=== PATIENT | female | born 1960 | race Caucasian/White ===

== ENCOUNTER 2019-01-17 13:25 | Inpatient (IN) | payer BC ==
[2019-01-17] MEDS ORDERED: ISOVUE-370 76%-LOCM 1 ML ONE (13:35)
[2019-01-17 14:01] VITALS: BMI 32.8
[2019-01-17] MEDS ORDERED: Fentanyl 100 MCG/2 ML VIAL SLOW IVP PRN (14:29)
[2019-01-17] MEDS: Dextrose 5 % And 0.9 % NaCl 1,000 ML IV SCH ×2 (15:06→23:49)
[2019-01-17 15:20] LABS: #Basophils 0.1 thou/uL (0.0-0.2); #Eosinphils 0.1 thou/uL (0.0-0.7); #Lymphocytes 2.3 thou/uL (1.20-3.40); #Monocytes 1.6 thou/uL (0.11-0.59); #Neutrophils 11.8 thou/uL (1.40-6.50); %Basophils 0.4 % (0.0-1.0); %Eosinophils 0.9 % (0.0-10.0); %Lymphocytes 14.4 % (21.0-51.0); %Monocytes 10.1 % (0.0-10.0); %Neutrophils 74.3 % (42.0-75.0); Hemoglobin 14.3 g/dL (12.0-16.0); Mean Corpuscular HGB CONC 32.8 g/dL (32.0-36.0); Mean Corpuscular Hemoglobin 27.7 pg (27.0-31.0); Mean Corpuscular Volume 84.6 fL (78.0-98.0); Mean Platelet Volume 7.9 fL (7.4-10.4); Platelet Count 246 thou/uL (130-400); RBC Distribution Width 12.3 % (11.5-14.5); Red Blood Cell (RBC) Count 5.14 mill/uL (4.20-5.40); White Blood Cell (WBC) Count 15.9 thou/uL (4.8-10.8)
[2019-01-17 15:38] LABS: ALT (SGPT) 16 U/L (8-55); AST (SGOT) 12 U/L (5-34); Alkaline Phosphatase 73 U/L (40-150); Anion Gap 14 mmol/L (10-20); BUN (Urea Nitrogen) 13 mg/dL (9.8-20.1); Bilirubin, Total 0.6 mg/dL (0.2-1.2); Calc. Creatinine Clearance 124 mL/min (70-130); Calcium 9.3 mg/dL (7.8-10.44); Carbon Dioxide 24 mmol/L (22-29); Chloride 104 mmol/L (98-107); Estimated GFR-MDRD 71; Globulin 3.2 g/dL (2.4-3.5); Glucose 76 mg/dL (70-105); Lipase 11 U/L (8-78); Potassium 3.7 mmol/L (3.5-5.1); Protein, Total 7.2 g/dL (6.0-8.3); Sodium 138 mmol/L (136-145)
[2019-01-17] MEDS ORDERED: Ondansetron PF 4 MG/2 ML Vial IVP PRN (16:07)
--- NOTE | 2019-01-17 16:40 | HP ---
HISTORY OF PRESENT ILLNESS: Ms. Durham is a pleasant 58-year-old female, who recently moved here from the [facility]. She was seen in our office on 12/04 by referral from emergency room, which she had been seen the day before. She reported at that time 3 to 4 days of diffuse abdominal pain, dull and cramping, and some blood and mucus in her stool. In the emergency room, she had a CAT scan of abdomen and pelvis with contrast, which showed diverticulosis but no diverticulitis, and fatty liver and a small hiatal hernia. Her comp metabolic profile, CBC, and lactic acid were all normal. Physical exam was benign. 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 She says in the past week or two that the symptoms became worse with more cramping and tenesmus in lower abdomen and some more blood and mucus. She has no clots, no melena in her stool. Today, she also complains of some vague dysphagia. She underwent upper and lower endoscopy today and had a small stricture at the GE junction consistent with reflux. This was about 15 mm in size and was dilated with good effect. She also underwent colonoscopy. The colonoscopy is very abnormal with narrowing in the sigmoid colon about 10 cm extending to about 20 cm with extrinsic compression. At first, we could not get through the area. We switched to an upper endoscope. We were able to advance beyond it, but not get into the cecum. We switched back to the regular scope and we were able to get to the cecum, which appeared normal. There was some diverticular disease but no overt diverticulitis in this area and there was quite a bit of extrinsic compression. Biopsies were obtained from the mucosa, which I suspect to be nondiagnostic. After the procedure, she was having a lot of discomfort. She had a benign exam and stable vital signs. She states she felt a little bit worse than she did even before the endoscopy. At that time, we had decided to go ahead and place her in the hospital; 1. To rule out perforation. 2. To re-evaluated her with CAT scan to see if there is any change in last 6 weeks as the colon was markedly abnormal. PAST MEDICAL HISTORY: Reflux, autoimmune disease, diverticulosis, esophageal stricture dilated in the past, irritable bowel, hysterectomy in 2011, abdominoplasty, previous endoscopies in 2011, EGD and colonoscopy with dilation of stricture, no polyps seen at that time. MEDICATIONS AT HOME: 1. Centrum. 2. Fish oil. 3. Vitamin D. ALLERGIES: NONE KNOWN. SOCIAL HISTORY: She drinks alcohol or wine once a week. She does not smoke. She does not use drugs. She is and has a significant other, who is here with today. REVIEW OF SYSTEMS: She has had intermittent problems of dysphagia and globus sensation, hoarseness in the past as noted above. She was dilated today. She has no cough, shortness of breath, weight loss, nausea, vomiting, hematemesis, or melena. ; negative for dysuria, frequency, or urgency. Negative for vaginal bleeding or discharge. PHYSICAL EXAMINATION: VITAL SIGNS: Pulse is 70, blood pressure , weight 232. GENERAL: She is well nourished, well developed. She is a little bit tearful and anxious about the findings for colonoscopy. LUNGS: Clear. HEART: Regular rate and rhythm without clicks or murmurs. ABDOMEN: Soft. She has mild tenderness in the suprapubic region, but no rebound or guarding. EXTREMITIES: No clubbing, cyanosis, or edema. DIAGNOSTIC STUDIES: Previous CAT scan from 12/03 was reviewed with the radiologist. Previous labs were reviewed. ASSESSMENT: 1. Lower abdominal pain and tenesmus with a functional outlet obstruction of the colon. This could be related to chronic diverticular disease or it could be related to extrinsic compression of the colon. 2. Abdominal pain, little bit worse than before her endoscopy. Her exam really has not changed. She definitely has progressive symptoms since she was seen in the emergency room and in our office 6 weeks ago, but I am not sure if she has had much change since her endoscopy, although there is a risk of perforation. PLAN: 1. We will admit her to the hospital for further evaluation including a CAT scan and labs. 2. We will consult the hospitalist to help with medical management issues, and depending on findings of her CAT scan, may involve General Surgery. Job ID: [id number]
[2019-01-17] MEDS: Piperacillin/Tazobactam 4.5 GM in Sodium Chloride 0.9% 100 ML IVPB SCH (17:34)
--- NOTE | 2019-01-17 18:49 | CT ---
ABDOMEN AND PELVIC CT SCAN WITH IV CONTRAST: 01/17/19 HISTORY: Abdominal pain and fever. FINDINGS: Minimal linear chronic stranding in the lung bases. Fatty changes in the liver. Normal appearing gall bladder. Small hiatal hernia. Pancreas, spleen, adrenal glands are unremarkable. No evidence for naga l calculus or acute obstruction. There is some focal diverticulitis in the rectosigmoid region of the colon with fairly marked colonic wall thickening and prominent pericolonic fat stranding and some adjacent fascial thickening and trace free fluid in the pelvis. No CT evidence for acute appendiciti s. No evidence for an abscess. No extraluminal gas. IMPRESSION: Evidence for acute diverticulitis in the rectosigmoid portion of the colon without evidence for absce ss or extraluminal gas. Other findings as above. Findings were discussed with Dr. Melton by phone at 6:18 p.m. Code EDWARD POS: ROBERT
[2019-01-17] MEDS ORDERED: metroNIDAZOLE 500 MG in Premix Bag 1 BAG IVPB SCH (22:00)
[2019-01-17] MEDS ORDERED: Acetaminophen 325 MG TAB PO PRN (22:40)
[2019-01-17] MEDS ORDERED: Acetaminophen 650 MG Suppository PR PRN (22:40)
[2019-01-17] MEDS ORDERED: Acetaminophen 650 MG in Premix Bag 1 BAG IVPB SCH (22:45)
[2019-01-18] MEDS ORDERED: diphenhydrAMINE 25 MG CAP PO PRN (00:01)
[2019-01-18] MEDS: Piperacillin/Tazobactam 4.5 GM in Sodium Chloride 0.9% 100 ML IVPB SCH ×4 (01:07→17:17)
--- NOTE | 2019-01-18 03:05 | HP ---
PRIMARY CARE DOCTOR: An out of town physician. CODE STATUS: Full code. TIME OF EVALUATION: 9:20 p.m. CHIEF COMPLAINT: Abdominal pain. HISTORY OF PRESENT ILLNESS: This 58-year-old female patient with past medical history of diverticular disease, came to the hospital after having on and off diffuse, diffuse abdominal pain for the past 3 to 4 days. No clear triggers, no alleviating factors, cramp like, symptoms are severe. The patient has had some evaluation in the past and there was some concern for possible tumor due to the symptoms. Dr. Melton has seen this patient and has admitted the patient to the hospital, will help with the medical management. The patient underwent EGD in which she was found to have gastroesophageal stricture and it was fixed, and also having diverticular disease with acute diverticulitis, significant change in the structure of the colon, this was seen also on the CT. Dr. Melton is following this problem. Please see his note and procedure for details. REVIEW OF SYSTEMS: CONSTITUTIONAL: No fever, chills, or generalized weakness. RESPIRATORY: No cough, sputum production, or shortness of breath. CARDIOVASCULAR: No chest pain or palpitation. GASTROINTESTINAL: The patient has no nausea, vomiting, or diarrhea. The patient does have abdominal pain. 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 GENITOURINARY: No burning on urination. EXTREMITIES: No leg swelling. All other systems were reviewed and negative except for the findings mentioned above. PAST MEDICAL HISTORY: History of diverticular disease. FAMILY HISTORY: Reviewed and non contributory for current presentation. SOCIAL HISTORY: She drinks alcohol once a week. No smoking. She does not use drugs. PHYSICAL EXAMINATION: VITAL SIGNS: Heart rate was within normal limits. Normal blood pressure. GENERAL APPEARANCE: The patient is alert, oriented, in no acute distress. HEENT: Eyes; normal conjunctivae. Moist oral mucosa. Anicteric. No JVD. RESPIRATORY: Bilateral air entry. No rales. No wheezes. Symmetric expansion. CARDIOVASCULAR: Normal rate. Regular rhythm. No murmurs. No edema. Occasional tachycardia. ABDOMEN: Soft, but tender, especially in the lower abdomen. MUSCULOSKELETAL: Baseline range of motion and strength. SKIN: Warm and intact. No pallor. No rash. No redness. Capillary refill seems to be intact. NEURO: No evidence of any new focal weakness. Cranial nerves seems to be intact. PSYCH: The patient is in good mood. No anxiety. Optimal judgment. LABORATORY DATA: Reviewed. The patient has white count of 15.9, MCV 84, hemoglobin 14.3, platelet count 246. Chemistry; sodium 138, potassium 3.7, chloride 104, carbon dioxide 24, anion gap 14, BUN 13, creatinine 0.83, GFR 71, glucose 76, calcium 9.3. LFTs were negative. Alkaline phosphatase 73. Serum total protein is 7.2. Lipase 11. ASSESSMENT AND PLAN: The patient has been placed in the hospital with following medical problems. 1. Acute diverticulitis, seen on the colonoscopy. Dr. Melton is following this patient. The patient is on antibiotics, will follow cultures and assist with antibiotic adjustment if needed. 2. Systemic inflammatory response syndrome. The patient has leukocytosis of 15.9. No other criteria for sepsis. We will treat empirically given severity of illness. The rest, we will treat as above. 3. Deep vein thrombosis prophylaxis. Job ID: [id number] MTDD
[2019-01-18] MEDS ORDERED: Acetaminophen 325 MG TAB PO PRN ×2 (05:15→14:10)
[2019-01-18] MEDS ORDERED: Acetaminophen 650 MG in Premix Bag 1 BAG IVPB SCH (05:30)
[2019-01-18 06:12] LABS: Anion Gap 11 mmol/L (10-20); BUN (Urea Nitrogen) 8 mg/dL (9.8-20.1); Calc. Creatinine Clearance 129 mL/min (70-130); Calcium 8.6 mg/dL (7.8-10.44); Carbon Dioxide 23 mmol/L (22-29); Chloride 108 mmol/L (98-107); Estimated GFR-MDRD 74; Glucose 107 mg/dL (70-105); Potassium 3.6 mmol/L (3.5-5.1); Sodium 138 mmol/L (136-145)
[2019-01-18 06:31] LABS: Band 1 % (5-11); Eosinophils 1 % (0-10); Hemoglobin 12.8 g/dL (12.0-16.0); Lymphocytes 31 % (21-51); MDiff Complete? YES; Mean Corpuscular HGB CONC 32.5 g/dL (32.0-36.0); Mean Corpuscular Hemoglobin 27.7 pg (27.0-31.0); Mean Corpuscular Volume 85.2 fL (78.0-98.0); Mean Platelet Volume 8.5 fL (7.4-10.4); Monocytes 10 % (0-10); Neutrophil 54 % (42-75); Platelet Count 244 thou/uL (130-400); RBC Distribution Width 12.3 % (11.5-14.5); Reactive Lymphocytes 3 % (0-10); Red Blood Cell (RBC) Count 4.63 mill/uL (4.20-5.40); White Blood Cell (WBC) Count 9.7 thou/uL (4.8-10.8)
[2019-01-18] MEDS: Dextrose 5 % And 0.9 % NaCl 1,000 ML IV SCH (06:34)
[2019-01-18] MEDS: Pantoprazole 40 MG VIAL IVP SCH (08:29)
[2019-01-18] MEDS ORDERED: Acetaminophen 650 MG/20.3 ML UDCUP PO PRN (13:59)
[2019-01-18] MEDS ORDERED: Saccharomyces boulardii 250 MG CAP PO SCH (14:15)
[2019-01-18] MEDS: Sodium Chloride 0.45% 1,000 ML IV SCH (14:36)
[2019-01-18] MEDS ORDERED: Acetaminophen 650 MG in Premix Bag 1 BAG IVPB PRN (16:30)
--- NOTE | 2019-01-18 17:26 | PRG ---
DATE OF SERVICE: 01/18/2019 REASON FOR CONSULTATION: Diverticulitis. SUBJECTIVE: The patient did well overnight with no acute events or problems. She does continue to have increased left lower quadrant abdominal pain, but currently controlled with current pain medication management. She has been able to tolerate IV antibiotics without any difficulty as well. She has not had a bowel movement since being admitted to the hospital and other than increased headache this morning, she currently denies any nausea, vomiting, fevers, chills, hematemesis, melena, or hematochezia. OBJECTIVE: VITAL SIGNS: Temperature 98.4, pulse 71, blood pressure 111/74, respiratory rate 20, and saturating 96% on room air. GENERAL: The patient is lying in bed, in no acute distress. Alert and oriented x4. CARDIOVASCULAR: Regular rate and rhythm. RESPIRATORY: Clear to auscultation bilaterally. ABDOMEN: Normoactive bowel sounds. Soft and nondistended. Tenderness to palpation in the suprapubic and right lower quadrant. EXTREMITIES: No cyanosis, clubbing, or edema. LABORATORY DATA: CBC with a white blood cell count of 9.7, hemoglobin 12.8, hematocrit 39.5, and platelets 244. Chemistry with a sodium of 138, potassium 3.6, chloride 108, CO2 of 23, BUN 8, creatinine 0.8, and glucose 107. IMAGING DATA: The patient underwent colonoscopy on January 17, 2019, which showed increased stenosis of the sigmoid colon that was concerning for extrinsic compression. However, CT of the abdomen and pelvis was also obtained on January 17, 2019, which showed focal diverticulitis in the rectosigmoid region of the colon with fairly marked colonic wall thickening and prominent pericolonic fat stranding with trace free fluid in the pelvis. There was no evidence of abscess or extraluminal gas indicative of perforation. ASSESSMENT AND PLAN: The patient is a 58-year-old female with past medical history of gastroesophageal reflux disease, esophageal stricture dilated in the past, irritable bowel syndrome, autoimmune disease, and diverticulosis, presenting with acute chronic diverticulitis. Diverticulitis: The patient states that she has been having progressively worsening abdominal pain over the last 1 to 2 months, located in primarily the left lower quadrant and suprapubic regions. She subsequently underwent colonoscopy on January 17, 2019, which showed significant narrowing of the rectosigmoid and sigmoid colons, initially concerning for extrinsic compression or mass like effect. However, CT of the abdomen and pelvis obtained also on January 17, 2019, showed findings consistent with acute uncomplicated diverticulitis. Currently, she is doing well and is responding to more conservative management with IV fluids and antibiotic administration. Recommendations: 1. We will continue the patient on a liquid diet for the time being and refrain from a higher fiber diet. However, I would reinstitute a higher fiber diet approximately 3 to 4 weeks after discharge from the hospital to help prevent any further episodes of diverticulitis. 2. We will continue antibiotics for gram-negative and anaerobic coverage including Zosyn. However, in preparation for when the patient is being evaluated for discharge, could consider placing her on an oral antibiotic regimen that consists of Bactrim/metronidazole or the use of Augmentin. 3. Pain control per primary team. We will continue to follow. Please call with any questions. Job ID: [id number]
[2019-01-18] MEDS: Enoxaparin Sodium 30 MG/0.3 ML SYRINGE SC SCH (17:53)
[2019-01-18] MEDS: Hydrocodone-Acetamin 15 ML UDCUP PO PRN (20:32)
--- NOTE | 2019-01-18 22:23 | PDOC.HOSPP ---
- Subjective Subjective: Patient seen and examined for Acute Diverticulitis. Tolerating clears. No N.V. Abd pain improving. No new complaints. No overnight events - Objective Vital Signs & Weight: Vital Signs (12 hours) Temp Pulse Resp BP BP Pulse Ox 01/18/19 20:00 98.5 F 61 20 114/77 100 01/18/19 16:00 98.4 F 71 20 111/74 01/18/19 12:00 97.9 F 64 20 130/70 96 Weight Admit Weight 235 lb Weight 235 lb I&O: 01/17/19 01/18/19 01/19/19 06:59 06:59 06:59 Intake Total 2955 Balance 2955 Result Diagrams: 01/19/19 05:42 01/19/19 05:42 ROS - Review of Systems All systems: All other ROS were reviewed and found negative. Respiratory: denies: cough, dry, shortness of breath, hemoptysis, SOB with excertion, pleuritic pain, sputum, wheezing, other Cardiovascular: denies: chest pain, palpitations, orthopnea, paroxysmal noc. dyspnea, edema, light headedness, other - Medication Medications: Active Medications Generic Name Dose Route Start Last Admin Trade Name Freq PRN Reason Stop Dose Admin Acetaminophen 650 mg 01/18/19 13:59 01/18/19 14:50 Tylenol Elixir PO 650 mg Q4H PRN Administration pain/fever Hydrocodone Bitart/Acetaminophen 15 ml 01/18/19 19:35 01/18/19 20:32 Hydrocodone-Apap 7.5-325/15 PO 15 ml Q6H PRN Administration Moderate to Severe Pain (6-10) Enoxaparin Sodium 30 mg 01/18/19 09:00 01/18/19 17:53 Lovenox SC Not Given 0900 GONSALO Piperacillin Sod/Tazobactam 100 mls @ 200 mls/hr 01/17/19 18:00 01/18/19 17: 17 Sod 4.5 gm/ Sodium Chloride IVPB 100 mls Q6HR GONSALO Administration Sodium Chloride 1,000 mls @ 125 mls/hr 01/18/19 14:15 01/18/19 14:36 1/2 Normal Saline IV 1,000 mls .Q8H GONSALO Administration Pantoprazole Sodium 40 mg 01/18/19 09:00 01/18/19 08:29 Protonix IVP 40 mg DAILY GONSALO Administration Sodium Chloride 10 ml 01/18/19 21:00 01/18/19 20:33 Flush - Normal Saline IVF Not Given Q12HR GONSALO - Exam NAD Heart: RRR, no gallops Respiratory: CTAB, no wheezes, no ronchi Gastrointestinal: soft, normal bowel sounds, tender to palpation (lower quadrants. No rebound/guarding) Extremities: no edema Psychiatric: normal affect, A&O x 3 Hosp A/P (1) Acute diverticulitis Code(s): K57.92 - DVTRCLI OF INTEST, PART UNSP, W/O PERF OR ABSCESS W/O BLEED Status: Acute (2) SIRS (systemic inflammatory response syndrome) Code(s): R65.10 - SIRS OF NON-INFECTIOUS ORIGIN W/O ACUTE ORGAN DYSFUNCTION Status: Acute (3) Obesity (BMI 30.0-34.9) Code(s): E66.9 - OBESITY, UNSPECIFIED (4) CKD (chronic kidney disease) stage 2, GFR 60-89 ml/min Code(s): N18.2 - CHRONIC KIDNEY DISEASE, STAGE 2 (MILD) - Plan Change IVF to 1/2 NS Cont IV Zosyn Consult Vault Clerk Add Probiotics Cont PPI Ambulate Cont other meds as below
[2019-01-19] MEDS: Piperacillin/Tazobactam 4.5 GM in Sodium Chloride 0.9% 100 ML IVPB SCH ×4 (00:31→15:56)
[2019-01-19] MEDS: Sodium Chloride 0.45% 1,000 ML IV SCH ×3 (00:35→14:21)
[2019-01-19 06:08] LABS: #Basophils 0.1 thou/uL (0.0-0.2); #Eosinphils 0.5 thou/uL (0.0-0.7); #Lymphocytes 2.7 thou/uL (1.20-3.40); #Monocytes 0.6 thou/uL (0.11-0.59); #Neutrophils 3.7 thou/uL (1.40-6.50); %Basophils 0.8 % (0.0-1.0); %Eosinophils 7.2 % (0.0-10.0); %Lymphocytes 35.5 % (21.0-51.0); %Monocytes 7.7 % (0.0-10.0); %Neutrophils 48.8 % (42.0-75.0); Hemoglobin 12.5 g/dL (12.0-16.0); Mean Corpuscular HGB CONC 31.8 g/dL (32.0-36.0); Mean Corpuscular Hemoglobin 27.6 pg (27.0-31.0); Mean Platelet Volume 8.1 fL (7.4-10.4); Platelet Count 259 thou/uL (130-400); RBC Distribution Width 12.4 % (11.5-14.5); Red Blood Cell (RBC) Count 4.51 mill/uL (4.20-5.40); White Blood Cell (WBC) Count 7.6 thou/uL (4.8-10.8)
[2019-01-19 06:16] LABS: ALT (SGPT) 19 U/L (8-55); AST (SGOT) 14 U/L (5-34); Albumin 3.3 g/dL (3.5-5.0); Alkaline Phosphatase 57 U/L (40-150); Anion Gap 10 mmol/L (10-20); BUN (Urea Nitrogen) 7 mg/dL (9.8-20.1); Bilirubin, Total 0.4 mg/dL (0.2-1.2); Calc. Creatinine Clearance 129 mL/min (70-130); Calcium 9.1 mg/dL (7.8-10.44); Carbon Dioxide 23 mmol/L (22-29); Chloride 111 mmol/L (98-107); Estimated GFR-MDRD 74; Globulin 2.7 g/dL (2.4-3.5); Glucose 88 mg/dL (70-105); Potassium 3.8 mmol/L (3.5-5.1); Sodium 140 mmol/L (136-145)
[2019-01-19] MEDS: Pantoprazole 40 MG VIAL IVP SCH (08:36)
[2019-01-19] MEDS: Saccharomyces boulardii 250 MG CAP PO SCH (08:38)
[2019-01-19] MEDS: Hydrocodone-Acetamin 15 ML UDCUP PO PRN (08:41)
[2019-01-19] MEDS: Enoxaparin Sodium 30 MG/0.3 ML SYRINGE SC SCH (09:24)
[2019-01-19] MEDS ORDERED: Hydrocodone-Acetamin 15 ML UDCUP PO PRN (12:41)
--- NOTE | 2019-01-19 19:49 | PDOC.HOSPP ---
- Subjective Subjective: Patient seen and examined for med mngt. Abd pain improving. No N/V. Tolerating clear liqd diet. No new complaints. No overnight events - Objective Vital Signs & Weight: Weight Admit Weight 235 lb Weight 235 lb I&O: 01/18/19 01/19/19 01/20/19 06:59 06:59 06:59 Intake Total 4751 2400 Balance 4765 2400 Result Diagrams: 01/20/19 05:56 01/20/19 05:57 ROS - Review of Systems All systems: All other ROS were reviewed and found negative. Respiratory: denies: cough, dry, shortness of breath, hemoptysis, SOB with excertion, pleuritic pain, sputum, wheezing, other Cardiovascular: denies: chest pain, palpitations, orthopnea, paroxysmal noc. dyspnea, edema, light headedness, other - Medication Medications: Active Medications Generic Name Dose Route Start Last Admin Trade Name Freq PRN Reason Stop Dose Admin Acetaminophen 650 mg 01/18/19 13:59 01/18/19 14:50 Tylenol Elixir PO 650 mg Q4H PRN Administration pain/fever Hydrocodone Bitart/Acetaminophen 15 ml 01/18/19 19:35 01/18/19 20:32 Hydrocodone-Apap 7.5-325/15 PO 15 ml Q6H PRN Administration Moderate to Severe Pain (6-10) Enoxaparin Sodium 30 mg 01/18/19 09:00 01/19/19 09:24 Lovenox SC Not Given 0900 GONSALO Piperacillin Sod/Tazobactam 100 mls @ 200 mls/hr 01/17/19 18:00 01/19/19 15: 56 Sod 4.5 gm/ Sodium Chloride IVPB 100 mls Q6HR GONSALO Administration Sodium Chloride 1,000 mls @ 75 mls/hr 01/19/19 12:22 01/19/19 14:21 1/2 Normal Saline IV Not Given .[id number] GONSALO Pantoprazole Sodium 40 mg 01/18/19 09:00 01/19/19 08:36 Protonix IVP 40 mg DAILY GONSALO Administration Saccharomyces Boulardii 250 mg 01/19/19 09:00 01/19/19 08:38 Florastor PO 250 mg DAILY GONSALO Administration Sodium Chloride 10 ml 01/18/19 21:00 01/19/19 07:11 Flush - Normal Saline IVF Not Given Q12HR GONSALO - Exam NAD Heart: RRR, no gallops Respiratory: CTAB, no rales Gastrointestinal: soft, normal bowel sounds, tender to palpation (in lower quad , no rebound/guarding) Extremities: no edema Skin: no rashes Hosp A/P (1) Acute diverticulitis Code(s): K57.92 - DVTRCLI OF INTEST, PART UNSP, W/O PERF OR ABSCESS W/O BLEED Status: Acute (2) SIRS (systemic inflammatory response syndrome) Code(s): R65.10 - SIRS OF NON-INFECTIOUS ORIGIN W/O ACUTE ORGAN DYSFUNCTION Status: Acute (3) Obesity (BMI 30.0-34.9) Code(s): E66.9 - OBESITY, UNSPECIFIED (4) CKD (chronic kidney disease) stage 2, GFR 60-89 ml/min Code(s): N18.2 - CHRONIC KIDNEY DISEASE, STAGE 2 (MILD) - Plan plan discussed w/ family Change IVF rate to 75 ml/hr Cont IV Zosyn Cont PPI Ambulate Cont other meds as below
[2019-01-19] MEDS: Docusate 100 MG CAP PO SCH (20:08)
--- NOTE | 2019-01-19 21:58 | PRG ---
DATE OF SERVICE: 01/19/2019 REASON FOR CONSULTATION: Diverticulitis. SUBJECTIVE: The patient did have a little bit of a restless night last night, but was otherwise doing well today. She does continue to have left lower quadrant abdominal pain, but currently controlled with the current pain medications. She has not had a bowel movement since being admitted to the hospital, although she has not had any solid food just yet. She had multiple questions about her diet both during this hospitalization and as an outpatient on discharge. Currently, she denies any nausea, vomiting, fevers, chills, hematemesis, melena, or hematochezia. OBJECTIVE: VITAL SIGNS: Temperature 97.9, pulse 69, blood pressure 114/77, respiratory rate 18, saturating 95% on room air. GENERAL: The patient was lying in bed, in no acute distress. Alert and oriented x4. CARDIOVASCULAR: Regular rate and rhythm. RESPIRATORY: Clear to auscultation bilaterally. ABDOMEN: Normoactive bowel sounds. Soft and nondistended. Tenderness to palpation in the right lower quadrant and periumbilical regions. EXTREMITIES: No cyanosis, clubbing, or edema. LABORATORY DATA: CBC with a white blood cell count of 7.6, hemoglobin 12.5, hematocrit 39.2, platelets 259. Chemistry with a sodium of 140, potassium 3.8, chloride 111, CO2 of 23, BUN 7, creatinine 0.8, glucose 88, AST 14, ALT 19, alkaline phosphatase 57, total bilirubin 0.4. IMAGING DATA: No current GI imaging is available for review. ASSESSMENT AND PLAN: The patient is a 58-year-old female with past medical history of gastroesophageal reflux disease, esophageal stricture with dilation in the past, irritable bowel syndrome, autoimmune disease, and diverticulosis, presenting with acute on chronic diverticulitis. Diverticulitis. The patient had been having progressively worsening abdominal pain over the last 1 to 2 months, primarily within the left lower quadrant and suprapubic regions. She subsequently underwent colonoscopy on January 17, 2019, which showed significant narrowing of the rectosigmoid and sigmoid colon, initially concerning for extrinsic compression. However, followup CT later that day showed findings consistent with acute uncomplicated diverticulitis. She was subsequently admitted to the hospital for further treatment and is doing well on her current antibiotic regimen and IV fluids. She does continue to still have abdominal pain, but is currently controlled with current pain medication regimen. RECOMMENDATIONS: 1. We would advance to full liquid diet today with the hopes of advancing her diet to a low-fiber diet in the near future. 2. Continue with current antibiotic regimen. On discharge, could consider placing her on Bactrim/metronidazole or Augmentin. 3. Pain control per Primary Team. We will continue to follow. Please call with any questions. Job ID: [id number]
[2019-01-20] MEDS: Piperacillin/Tazobactam 4.5 GM in Sodium Chloride 0.9% 100 ML IVPB SCH ×4 (00:58→18:09)
[2019-01-20] MEDS: Sodium Chloride 0.45% 1,000 ML IV SCH (00:59)
[2019-01-20 06:32] LABS: #Basophils 0.1 thou/uL (0.0-0.2); #Eosinphils 0.5 thou/uL (0.0-0.7); #Lymphocytes 2.3 thou/uL (1.20-3.40); #Monocytes 0.6 thou/uL (0.11-0.59); #Neutrophils 3.6 thou/uL (1.40-6.50); %Basophils 1.3 % (0.0-1.0); %Eosinophils 6.5 % (0.0-10.0); %Lymphocytes 33.2 % (21.0-51.0); %Monocytes 7.9 % (0.0-10.0); %Neutrophils 51.1 % (42.0-75.0); Mean Corpuscular HGB CONC 32.1 g/dL (32.0-36.0); Mean Corpuscular Hemoglobin 27.4 pg (27.0-31.0); Mean Corpuscular Volume 85.4 fL (78.0-98.0); Mean Platelet Volume 8.3 fL (7.4-10.4); Platelet Count 252 thou/uL (130-400); RBC Distribution Width 12.3 % (11.5-14.5); Red Blood Cell (RBC) Count 4.76 mill/uL (4.20-5.40)
[2019-01-20 06:46] LABS: Anion Gap 8 mmol/L (10-20); BUN (Urea Nitrogen) 7 mg/dL (9.8-20.1); Calc. Creatinine Clearance 121 mL/min (70-130); Calcium 9.1 mg/dL (7.8-10.44); Carbon Dioxide 26 mmol/L (22-29); Chloride 110 mmol/L (98-107); Estimated GFR-MDRD 69; Glucose 97 mg/dL (70-105); Potassium 3.8 mmol/L (3.5-5.1); Sodium 140 mmol/L (136-145)
--- NOTE | 2019-01-20 07:56 | HP ---
ADDENDUM: Ms. Durham notes that she several years ago had a tendon rupture after being on Cipro. Therefore, we are going to not give her Levaquin and Flagyl and give her Zosyn empirically. She is drinking contrast for her CAT scan presently. Job ID: [id number]
[2019-01-20] MEDS: Enoxaparin Sodium 30 MG/0.3 ML SYRINGE SC SCH (09:32)
[2019-01-20] MEDS: Saccharomyces boulardii 250 MG CAP PO SCH (09:39)
[2019-01-20] MEDS: Pantoprazole 40 MG VIAL IVP SCH (09:39)
[2019-01-20] MEDS: Docusate 100 MG CAP PO SCH (09:40)
[2019-01-20] MEDS ORDERED: Sodium Chloride 0.45% 1,000 ML IV SCH (11:07)
--- NOTE | 2019-01-20 15:28 | PDOC.HOSPP ---
- Subjective Subjective: Patient seen and examined for Acute Diverticulitis. No fever/chills. Tolerating Full liqd diet. No new complaints. No overnight events - Objective Vital Signs & Weight: Vital Signs (12 hours) Temp Pulse Resp BP Pulse Ox 01/20/19 08:00 97 01/20/19 07:58 97.7 F 60 18 112/75 97 Weight Admit Weight 235 lb Weight 235 lb I&O: 01/19/19 01/20/19 01/21/19 06:59 06:59 06:59 Intake Total 4765 2400 Balance 4765 2400 Result Diagrams: 01/20/19 05:56 01/20/19 05:57 ROS - Review of Systems All systems: All other ROS were reviewed and found negative. Respiratory: denies: cough, dry, shortness of breath, hemoptysis, SOB with excertion, pleuritic pain, sputum, wheezing, other Cardiovascular: denies: chest pain, palpitations, orthopnea, paroxysmal noc. dyspnea, edema, light headedness, other - Medication Medications: Active Medications Generic Name Dose Route Start Last Admin Trade Name Freq PRN Reason Stop Dose Admin Acetaminophen 650 mg 01/18/19 13:59 01/18/19 14:50 Tylenol Elixir PO 650 mg Q4H PRN Administration pain/fever Hydrocodone Bitart/Acetaminophen 15 ml 01/18/19 19:35 01/18/19 20:32 Hydrocodone-Apap 7.5-325/15 PO 15 ml Q6H PRN Administration Moderate to Severe Pain (6-10) Hydrocodone Bitart/Acetaminophen 7.5 ml 01/19/19 12:41 01/19/19 21:44 Hydrocodone-Apap 7.5-325/15 PO 7.5 ml Q6H PRN Administration Mild-Moderate Pain (1-5) Enoxaparin Sodium 30 mg 01/18/19 09:00 01/20/19 09:32 Lovenox SC Not Given 0900 GONSALO Piperacillin Sod/Tazobactam 100 mls @ 200 mls/hr 01/17/19 18:00 01/20/19 12: 19 Sod 4.5 gm/ Sodium Chloride IVPB 100 mls Q6HR GONSALO Administration Sodium Chloride 1,000 mls @ 30 mls/hr 01/20/19 11:07 01/20/19 12:19 1/2 Normal Saline IV Not Given .Q24H GONSALO Pantoprazole Sodium 40 mg 01/18/19 09:00 01/20/19 09:39 Protonix IVP 40 mg DAILY GONSALO Administration Saccharomyces Boulardii 250 mg 01/19/19 09:00 01/20/19 09:39 Florastor PO 250 mg DAILY GONSALO Administration Sodium Chloride 10 ml 01/18/19 21:00 01/20/19 09:40 Flush - Normal Saline IVF Not Given Q12HR GONSALO - Exam NAD Heart: RRR, no gallops Respiratory: CTAB, no rales Gastrointestinal: soft, normal bowel sounds, tender to palpation (mild in lower quadrant) Extremities: no edema Hosp A/P (1) Acute diverticulitis Code(s): K57.92 - DVTRCLI OF INTEST, PART UNSP, W/O PERF OR ABSCESS W/O BLEED Status: Acute (2) SIRS (systemic inflammatory response syndrome) Code(s): R65.10 - SIRS OF NON-INFECTIOUS ORIGIN W/O ACUTE ORGAN DYSFUNCTION Status: Acute (3) Obesity (BMI 30.0-34.9) Code(s): E66.9 - OBESITY, UNSPECIFIED (4) CKD (chronic kidney disease) stage 2, GFR 60-89 ml/min Code(s): N18.2 - CHRONIC KIDNEY DISEASE, STAGE 2 (MILD) - Plan Cont IV Zosyn Reduce IVF to KVO Cont Full liqd diet Ambulate
--- NOTE | 2019-01-20 19:24 | PRG ---
DATE OF SERVICE: 01/20/2019 SUBJECTIVE: Ms. Durham feels much better. She asks if she can move to more soft diet. She has had no fever or chills. She has been up walking. OBJECTIVE: VITAL SIGNS: Temperature 97.7, pulse 60, blood pressure 112/75. ABDOMEN: Soft, nontender. Mild fullness in left lower quadrant. LABORATORY DATA: White count 7, hemoglobin 13, platelet count 252. Electrolytes are normal. ASSESSMENT: Severe diverticulitis. RECOMMENDATIONS: 1. Hep-Lock IV. 2. Advance diet if the patient tolerates this. Would consider discharging home tomorrow on oral antibiotics, probably a combination of Flagyl and Augmentin would be the best. Job ID: [id number]
[2019-01-21] MEDS: Piperacillin/Tazobactam 4.5 GM in Sodium Chloride 0.9% 100 ML IVPB SCH ×4 (00:17→18:03)
[2019-01-21] MEDS: Enoxaparin Sodium 30 MG/0.3 ML SYRINGE SC SCH (08:44)
[2019-01-21] MEDS: Docusate 100 MG CAP PO PRN (08:48)
[2019-01-21] MEDS: Saccharomyces boulardii 250 MG CAP PO SCH (08:48)
[2019-01-21] MEDS: Pantoprazole 40 MG VIAL IVP SCH (08:49)
--- NOTE | 2019-01-21 19:43 | PDOC.HOSPP ---
- Subjective Subjective: Patient seen and examined for Acute Diverticulitis. Abd pain improving. Appetite slowly improving. No new complaints. No overnight events - Objective Vital Signs & Weight: Weight Admit Weight 235 lb Weight 235 lb I&O: 01/20/19 01/21/19 01/22/19 06:59 06:59 06:59 Intake Total 2400 2300 2100 Balance 2400 2300 2100 Result Diagrams: 01/20/19 05:56 01/20/19 05:57 ROS - Review of Systems Respiratory: denies: cough, dry, shortness of breath, hemoptysis, SOB with excertion, pleuritic pain, sputum, wheezing, other Cardiovascular: denies: chest pain, palpitations, orthopnea, paroxysmal noc. dyspnea, edema, light headedness, other - Medication Medications: Active Medications Generic Name Dose Route Start Last Admin Trade Name Freq PRN Reason Stop Dose Admin Acetaminophen 650 mg 01/18/19 13:59 01/18/19 14:50 Tylenol Elixir PO 650 mg Q4H PRN Administration pain/fever Hydrocodone Bitart/Acetaminophen 15 ml 01/18/19 19:35 01/18/19 20:32 Hydrocodone-Apap 7.5-325/15 PO 15 ml Q6H PRN Administration Moderate to Severe Pain (6-10) Hydrocodone Bitart/Acetaminophen 7.5 ml 01/19/19 12:41 01/19/19 21:44 Hydrocodone-Apap 7.5-325/15 PO 7.5 ml Q6H PRN Administration Mild-Moderate Pain (1-5) Docusate Sodium 100 mg 01/20/19 11:08 01/21/19 08:48 Colace PO 100 mg BID PRN Administration Constipation Enoxaparin Sodium 30 mg 01/18/19 09:00 01/21/19 08:44 Lovenox SC Not Given 0900 GONSALO Piperacillin Sod/Tazobactam 100 mls @ 200 mls/hr 01/17/19 18:00 01/21/19 18: 03 Sod 4.5 gm/ Sodium Chloride IVPB 100 mls Q6HR GONSALO Administration Pantoprazole Sodium 40 mg 01/18/19 09:00 01/21/19 08:49 Protonix IVP 40 mg DAILY GONSALO Administration Saccharomyces Boulardii 250 mg 01/19/19 09:00 01/21/19 08:48 Florastor PO 250 mg DAILY GONSALO Administration Sodium Chloride 10 ml 01/18/19 21:00 01/21/19 08:49 Flush - Normal Saline IVF 10 ml Q12HR GONSALO Administration - Exam NAD Heart: RRR, no gallops Respiratory: CTAB, no rales Gastrointestinal: soft, non-distended, normal bowel sounds, tender to palpation (in RLQ on deep palpation) Hosp A/P (1) Acute diverticulitis Code(s): K57.92 - DVTRCLI OF INTEST, PART UNSP, W/O PERF OR ABSCESS W/O BLEED Status: Acute (2) SIRS (systemic inflammatory response syndrome) Code(s): R65.10 - SIRS OF NON-INFECTIOUS ORIGIN W/O ACUTE ORGAN DYSFUNCTION Status: Acute (3) Obesity (BMI 30.0-34.9) Code(s): E66.9 - OBESITY, UNSPECIFIED (4) CKD (chronic kidney disease) stage 2, GFR 60-89 ml/min Code(s): N18.2 - CHRONIC KIDNEY DISEASE, STAGE 2 (MILD) - Plan Cont IV Zosyn Cont Full liqd diet Cont other meds as below DC home if tolerating PO
--- NOTE | 2019-01-21 21:46 | PRG ---
DATE OF SERVICE: 01/21/2019 SUBJECTIVE: Ms. Durham started eating soft diet today, low residue. She has had a couple of small bowel movements, just scant amounts since developing suprapubic pressure. Again, she feels she is voiding and emptying. It is more of a tenderness feeling similar to what she was experiencing before admission. She remains on IV antibiotics. She is on probiotic. She is on DVT prophylaxis. OBJECTIVE: VITAL SIGNS: Temperature is 97.5. She remains afebrile. Pulse 58, blood pressure 108/73. GENERAL: She is walking in the room with no discomfort. ABDOMEN: Soft. There is mild suprapubic fullness, mild tenderness, but no rebound or guarding. LABORATORY DATA: None. ASSESSMENT: Severe diverticulitis. She has had some relapse of symptoms with some suprapubic discomfort as well as sense of fullness and some tenesmus. This is likely related to stricturing in the sigmoid colon, related to severe diverticular disease. Biopsies were taken from the sigmoid colon at area of narrowing showed neutrophils, no cryptitis, no dysplasia or malignancy. This is likely secondary to the effect of the diverticular disease. PLAN: We will continue low-residue diet. We will repeat CBC in the morning. If symptoms are progressing, we will repeat her CAT scan. If they are improving, we will consider switching her to p.o. antibiotics and discharge. I had a long discussion with her significant other and her this evening about the possibilities that this may resolve with medical therapy alone or that this may ultimately require surgery at a later date or during this hospital admission. We will see how she does. We will re-evaluate tomorrow morning. Job ID: [id number]
[2019-01-22] MEDS: Piperacillin/Tazobactam 4.5 GM in Sodium Chloride 0.9% 100 ML IVPB SCH ×3 (00:25→13:22)
[2019-01-22 07:08] LABS: #Basophils 0.1 thou/uL (0.0-0.2); #Eosinphils 0.5 thou/uL (0.0-0.7); #Lymphocytes 2.1 thou/uL (1.20-3.40); #Monocytes 0.8 thou/uL (0.11-0.59); %Basophils 0.6 % (0.0-1.0); %Eosinophils 5.6 % (0.0-10.0); %Monocytes 9.2 % (0.0-10.0); %Neutrophils 59.6 % (42.0-75.0); Hemoglobin 14.6 g/dL (12.0-16.0); Mean Corpuscular HGB CONC 31.9 g/dL (32.0-36.0); Mean Corpuscular Hemoglobin 26.8 pg (27.0-31.0); Mean Corpuscular Volume 84.1 fL (78.0-98.0); Mean Platelet Volume 8.5 fL (7.4-10.4); Platelet Count 292 thou/uL (130-400); RBC Distribution Width 12.5 % (11.5-14.5); Red Blood Cell (RBC) Count 5.44 mill/uL (4.20-5.40); White Blood Cell (WBC) Count 8.4 thou/uL (4.8-10.8)
[2019-01-22] MEDS: Enoxaparin Sodium 30 MG/0.3 ML SYRINGE SC SCH (09:32)
[2019-01-22] MEDS: Saccharomyces boulardii 250 MG CAP PO SCH (09:37)
[2019-01-22] MEDS: Pantoprazole 40 MG VIAL IVP SCH (09:37)
[2019-01-22] MEDS: Docusate 100 MG CAP PO PRN (09:38)
--- NOTE | 2019-01-22 12:25 | PRG ---
DATE OF SERVICE: 01/22/2019 SUBJECTIVE: Ms. Durham feels more bloated today. She is trying to eat, but is not really having bowel movements. The pain is better. She is sitting up eating with her low full liquid diet. OBJECTIVE: VITAL SIGNS: Temperature , pulse 58, blood pressure 131/72. ABDOMEN: Protuberant, but nontender in lower abdomen. EXTREMITIES: No clubbing, cyanosis, or edema. LABORATORY DATA: White count is 8.4, hemoglobin 14.6, platelet count 292. ASSESSMENT: Diverticulitis, clinically improved when she came in, although with starting advancing diet, she is having more bloating and discomfort in the lower abdomen. White count is down. Fever is down. RECOMMENDATIONS: We will get a CAT scan today. If there is improvement in the imaging or at least not progression, we will switch her to oral antibiotics, let her go home and follow up in the office in a few weeks. If she has progressive disease despite IV antibiotics, we will consult General Surgery. Job ID: [id number]
--- NOTE | 2019-01-22 17:35 | CT ---
CT ABDOMEN AND PELVIS WITH ORAL AND IV CONTRAST: HISTORY: Rectosigmoid diverticulitis. Abdominal pain. C/W: 01/17/19 FINDINGS: There has been interval improvement in the pericolonic inflammatory changes adjacent to the rectosigm oid. No abnormally loculated fluid collection is seen to suggest abscess formation. The remainder of the exam is otherwise stable. POS: [facility]
[2019-01-22 18:22] VITALS: BP 112/73; TEMP 97.9
--- NOTE | 2019-01-22 22:12 | DIS ---
DATE OF ADMISSION: 01/17/2019 DATE OF DISCHARGE: 01/22/2019 PRIMARY CARE PROVIDER: Out of town. DISCHARGE DIAGNOSIS: Acute diverticulitis. CONDITION OF PATIENT ON THE DAY OF DISCHARGE: Stable. I saw Ms. Durham on the day of discharge. She reports that she is having small bowel movements. Vital signs are stable. CONSULTATIONS DURING THIS HOSPITALIZATION: Gastroenterology, Dr. Melton. DISCHARGE MEDICATIONS: 1. Augmentin 875 mg 2 times a day for 9 days. 2. Metronidazole 500 mg 3 times a day for 9 days. 3. Florastor 250 mg daily for 9 days. HOSPITAL COURSE: Ms. Durham is a pleasant 58-year-old lady, who was admitted to [facility] on January 17, 2019 for acute diverticulitis. She was treated with intravenous antibiotics in the form of Zosyn. She continued to slowly improve. Repeat CT scan of the abdomen and pelvis on January 22, 2019, reportedly did not show any worsening of the disease. She has been cleared for discharge by Gastroenterology Service. During this hospitalization, she received antibiotics for 5 days. She is being transitioned to oral antibiotics for 9 more days along with probiotic. Gastroenterology Service will follow up with her as outpatient. She has been advised low residue diet. Many thanks for allowing me to participate in Ms. Durham's care. Please feel free to contact me with any questions or concerns. On the day of discharge, Ms. Durham has white count of 8400, hemoglobin 14.6, platelet count 292,000. Sodium 140, potassium 3.8, and creatinine 0.85. DISCHARGE DESTINATION: Home. TIME SPENT: Total amount of time spent coordinating this discharge: 20 minutes. Job ID: [id number]
== END 2019-01-22 17:57 | disposition home or self-care (01) | DRG 392 ==
LOC: T4-A 13:38
PROVIDERS: ADMIT Internal Medicine Gastroenterology; ATTEND Internal Medicine Gastroenterology
DX: K57.32 Diverticulitis of large intestine without perforation or abscess without bleeding (principal); R65.10 Systemic inflammatory response syndrome (SIRS) of non-infectious origin without acute organ dysfunction; K21.9 Gastro-esophageal reflux disease without esophagitis; E66.9 Obesity, unspecified; N18.2 Chronic kidney disease, stage 2 (mild); Z68.32 Body mass index [BMI] 32.0-32.9, adult; Z90.710 Acquired absence of both cervix and uterus; Z79.899 Other long term (current) drug therapy
CPT/HCPCS: 36415; 74177; 80048; 80053; 83690; 85007; 85025; 85027; C9113; J0131; J1650; J1956; J2543; J3010; J3490; Q9966